=== PATIENT | male | born 2000 | race Caucasian/White ===

== ENCOUNTER 2019-09-11 17:33 | Emergency (ER) | payer OTHER ==
[~2019-09-11] VITALS: Ht 188 cm; Wt 158.8 kg
[2019-09-11] MEDS ORDERED: NORCO 5-325 TA1 EAC1 PO (17:50)
[2019-09-11] MEDS ORDERED: AMOXICILLIN 50500 MG PO (17:50)
[2019-09-11] MEDS ORDERED: CIPRODEX OTIC7.5 ML OTIC (17:50)
[2019-09-11 17:57] VITALS: BP 160/94
== END 2019-09-11 17:58 | disposition home or self-care (01) ==
LOC: M.ERS 17:33
DX: H60.92 Unspecified otitis externa, left ear (principal)

== ENCOUNTER 2020-01-31 17:02 | Emergency (ER) | payer OTHER ==
[~2020-01-31] VITALS: Ht 188 cm; Wt 163.3 kg
[~2020-01-31 17:02] MED LIST: AMOXICILLIN 50500 MG PO; CIPRODEX OTIC7.5 ML OTIC; NORCO 5-325 TA1 EAC1 PO
[2020-01-31] MEDS ORDERED: APAP W/CODEINE1 TA2 PO (18:31)
[2020-01-31 18:38] VITALS: BP 157/93
== END 2020-01-31 18:39 | disposition home or self-care (01) ==
LOC: M.ERS 17:02
DX: U07.1 COVID-19 (principal); Z90.89 Acquired absence of other organs

== ENCOUNTER 2020-04-06 18:17 | Emergency (ER) | payer OTHER ==
[~2020-04-06] VITALS: Ht 188 cm; Wt 152.0 kg
[~2020-04-06 18:17] MED LIST changes: +APAP W/CODEINE1 TA2 PO
[2020-04-06] MEDS ORDERED: IBUPROFEN 800800 M1 PO (22:43)
[2020-04-06] MEDS ORDERED: FLEXERIL PO (22:43)
[2020-04-06 22:58] VITALS: BP 155/98
== END 2020-04-06 22:58 | disposition home or self-care (01) ==
LOC: M.ERS 18:17
DX: S86.912A Strain of unspecified muscle(s) and tendon(s) at lower leg level, left leg, initial encounter (principal); X58.XXXA Exposure to other specified factors, initial encounter; Y93.89 Activity, other specified; Y92.89 Other specified places as the place of occurrence of the external cause; Y99.8 Other external cause status